=== PATIENT | female | born 1960 | race Caucasian/White ===

== ENCOUNTER → 2017-03-01 | Outpatient (CLI) | payer MEDICARE, MEDICAID ==
[~2017-03-01] MED LIST: ALBUTEROL2 PUFFS/17 IN; ATENOLOL100 MG; ATENOLOL100 MG PO; BACTRIM DS 8001 TAB PO; BENADRYL25 M1 PO; BENZONATATE100 MG PO; CEPHALEXIN500 MG PO; CHERATUSSIN AC120 ML PO; CIPRO 500MG TA500 MG PO; DARVOCET-N 1001 EACH PO; DARVOCET-N6 EACH/PAK OR; DOXYCYCLINE MO100 MG PO; FIORICET 325 MG1 TAB PO; FLEXERIL10 MG PO; GABAPENTIN300 MG PO; HYCODAN 5MG. TAB5 MG PO; HYDROCODONE1 TABLET PO; HYDROXYZINE 25M25 MG; IBU-8800 MG PO; LORTAB 5/500 501 TAB PO; MEDROL 4MG. DOSE4 MG PO; NAPROSYN 500MG500 MG PO; NEURONTIN 300M300 MG PO; NIACIN PO; NOMEDS; NOMEDS *; PHENERGAN 25MG.25 MG PR; PRAVACHOL40 MG; PRAVASTATIN 40M40 MG; PREDNISONE 20MG20 MG PO; PROAIR HFA0.09 MG/AC IH; PYRIDIUM 200MG200 MG PO; SULFAMETHOXAZOL1 TA6; TEGRETOL100 MG PO; TESSALON PERLE100 MG PO; ULTRAM50 MG PO; VICODIN 5/500 T1 TAB PO; VOLTAREN75 MG PO; XANAX 1MG TABLET1 MG PO; ZANTAC 300300 MG PO
[2017-03-01 10:52] LABS: HEMOGLOBIN 13.4 g/dL (12.2-16.2); LYMPH # 1.7 K/mm3 (0.7-4.5); LYMPH % 34.4 % (10-50.0)
[2017-03-01 11:28] LABS: BUN 9 mg/dL (7-18)
[2017-03-01 11:54] LABS: GFR (ESTIMATED) 103 ML/MIN (59-)
== END ==
LOC: LAB 10:36
PROVIDERS: Specialist
DX: I67.1 Cerebral aneurysm, nonruptured (principal); G40.209 Localization-related (focal) (partial) symptomatic epilepsy and epileptic syndromes with complex partial seizures, not intractable, without status epilepticus; J41.1 Mucopurulent chronic bronchitis; G44.329 Chronic post-traumatic headache, not intractable